=== PATIENT | female | born 1995 | race African-American/Black ===

== ENCOUNTER 2016-08-16 09:14 | Emergency (ER) | payer OTHER ==
[~2016-08-16] VITALS: Ht 167.6 cm; Wt 65.8 kg
[2016-08-16 09:25] VITALS: BP 112/72
[2016-08-16] MEDS ORDERED: EC-NAPROSYN375 MG PO (09:25)
[2016-08-16] MEDS ORDERED: Lidocaine 1% MPF 10mg/ml 5ml IM ONE (10:00)
[2016-08-16] MEDS ORDERED: KEFLEX500 MG ORAL (10:16)
[2016-08-16] MEDS ORDERED: Bacitracin Oint UD TOPIC ONE ×2 (10:23→10:30)
[2016-08-16 10:25] VITALS: BP 110/69
[2016-08-16 10:28] VITALS: BP 110/69
--- NOTE | 2016-08-16 11:10 | Emergency Room Report ---
History of Present Illness General Chief Complaint: Animal Bite Source: Patient Present Illness HPI Patient is a 20-year-old female who presented after increased painful lesion to her finger. The patient had gradual onset of symptoms. Patient thinks that she was bitten by a spider. Patient states she's had similar prior symptoms. patient denied any fever. She reported having minimal pain. She denied other locations of similar rash . Allergies: Coded Allergies: No Known Allergies (Unverified , 08/16/16) Patient History Past Medical History: see triage record Last Menstrual Period: 08/07/2016 Now: No : 2 Para: 0 Reviewed Nursing Documentation: PMH: Agreed, PSxH: Agreed Nursing Documentation-PMH Past Medical History: No Stated History Review of Systems All Other Systems: negative except mentioned in HPI Physical Exam Vital Signs Date Time Temp Pulse Resp B/P Pulse Ox O2 Delivery O2 Flow Rate FiO2 08/16/16 09:18 98.4 85 16 112/72 100 Room Air Sp02 EP Interpretation: reviewed, normal General Appearance: normal inspection, well appearing, no apparent distress, alert, GCS 15 Head: atraumatic ENT: normal ENT inspection, hearing grossly normal, normal voice Neck: normal inspection, full range of motion, supple, no bony tend Respiratory: normal inspection, lungs clear, normal breath sounds, no respiratory distress, no retraction, no wheezing Cardiovascular #1: regular rate, rhythm, no edema Gastrointestinal: normal inspection, normal bowel sounds, non tender, soft, no guarding, no hernia Genitourinary: no CVA tenderness Musculoskeletal: normal inspection, back normal, normal range of motion Neurologic: normal inspection, alert, responsive, speech normal Psychiatric: normal inspection, judgement/insight normal, mood/affect normal Skin: normal inspection, other - small pustule to dorsum of right fourth finger Medical Decision Making Diagnostic Impression: Primary Impression: Insect bite ER Course Patient presented for skin rash. Differential diagnosis included was not limited to abscess, cellulitis, contact dermatitis among others. Patient's benign exam and does not appear to require any further imaging or laboratory testing at this time. The patient's skin lesion was unroofed with a needle after informed consent was obtained. There is and no purulent drainage. The patient was noted to have some evidence of infection and was started on Keflex by mouth. The patient is advised to follow up with primary care doctor in 1-2 days. Patient is advised to return if any worsening condition or if any changes in status that are concerning. Last Vital Signs Date Time Temp Pulse Resp B/P Pulse Ox O2 Delivery O2 Flow Rate FiO2 08/16/16 10:28 98.4 79 16 110/69 100 Room Air Status: improved Disposition: HOME, SELF-CARE Condition: Stable Scripts Cephalexin* (KEFLEX*) 500 Mg Capsule 500 MG ORAL Q6H, #28 CAP 0 Refills Prov: Prince Abernathy 08/16/16 Patient Instructions: Insect Bite Prince Abernathy Aug 16, 2016 11:10
== END 2016-08-16 10:28 | disposition home or self-care (01) ==
LOC: EMR 09:42
DX: S60.464A Insect bite (nonvenomous) of right ring finger, initial encounter (principal); W57.XXXA Bitten or stung by nonvenomous insect and other nonvenomous arthropods, initial encounter; Y92.9 Unspecified place or not applicable; Y99.8 Other external cause status
CPT/HCPCS: 99283